=== PATIENT | female | born 1950 | race African-American/Black ===

== ENCOUNTER 2018-01-25 01:49 | Emergency (ER) | payer OTHER, MEDICARE ==
[2018-01-25] MEDS ORDERED: ASPIRIN 81 MG TABLET, CHEWABLE PO ONE (02:08)
[2018-01-25 02:45] LABS: ABSOLUTE EOSINOPHILS # (AUTO) 0.1 10^3/uL (0.0-0.6); ABSOLUTE LYMPHOCYTES (AUTO) 1.4 10^3/uL (0.5-4.7); ABSOLUTE MONOCYTES (AUTO) 0.5 10^3/uL (0.1-1.4); ABSOLUTE NEUT (AUTO) 2.6 10^3/uL (1.7-8.2); BASOPHILS % (AUTO) 0.9 % (0-2); EOSINOPHILS % (AUTO) 2.8 % (0-6); HEMATOCRIT 37.2 % (36.0-47.0); HEMOGLOBIN 12.3 g/dL (12.0-15.5); LYMPHOCYTES % (AUTO) 29.6 % (13-45); MEAN CORPUSCULAR HEMOGLOBIN 30.9 pg (27.0-33.4); MEAN CORPUSCULAR HGB CONC 33.2 g/dL (32.0-36.0); MEAN CORPUSCULAR VOLUME 93 fl (80-97); MONOCYTES % (AUTO) 9.9 % (3-13); PLATELET COUNT 177 10^3/uL (150-450); RED BLOOD COUNT 3.99 10^6/uL (3.72-5.28); RED CELL DISTRIBUTION WIDTH 12.9 % (11.5-14.0); SEGMENTED NEUTROPHILS % (AUTO) 56.8 % (42-78); TOTAL CELLS COUNTED % (AUTO) 100 %; WHITE BLOOD COUNT 4.7 10^3/uL (4.0-10.5)
[2018-01-25 03:01] LABS: ALANINE AMINOTRANSFERASE 31 U/L (9-52); ALBUMIN 3.8 g/dL (3.5-5.0); ALKALINE PHOSPHATASE 69 U/L (38-126); ANION GAP 11 (5-19); ASPARTATE AMINO TRANSFERASE 27 U/L (14-36); BILIRUBIN,DIRECT 0.3 mg/dL (0.0-0.4); BILIRUBIN,TOTAL 0.3 mg/dL (0.2-1.3); BLOOD UREA NITROGEN 26 mg/dL (7-20); CALCIUM 9.4 mg/dL (8.4-10.2); CARBON DIOXIDE 25 mmol/L (22-30); CHLORIDE 109 mmol/L (98-107); CREATINE KINASE 153 U/L (30-135); GLUCOSE 99 mg/dL (75-110); POTASSIUM 3.7 mmol/L (3.6-5.0); SODIUM 145.2 mmol/L (137-145); TOTAL PROTEIN 6.7 g/dL (6.3-8.2)
[2018-01-25 03:14] LABS: TROPONIN I < 0.012 ng/mL
--- NOTE | 2018-01-25 03:35 | RADIOLOGY REPORT (SQ) ---
Clinical History : cp , Complete Date/Time^01/25/2018 02:08 SITE_PROCEDURE_DESCRIPTION Exam : Portable AP view of the chest 01/25/2018 2:08 AM CDT Comparisons : none Findings : The lungs are clear without focal consolidation or pleural effusion. The heart is normal in size. The mediastinal contours are normal in appearance. The thoracic spine is age appropriate. The shoulders are unremarkable. Limited evaluation of the upper abdomen demonstrates no gross abnormalities. Impression: No acute cardiopulmonary disease
--- NOTE | 2018-01-25 06:14 | ER Document Report ---
ED Cardiac - General Chief Complaint: Chest Pain Stated Complaint: CHEST PAIN Time Seen by Provider: 01/25/18 03:32 Mode of Arrival: Ambulatory Information source: Patient Notes: Pt is a 67 year old female with a history of HTN who presents to the ER today for one single twinge of pain to the right chest 3 hours ago. She states it did not radiate anywhere, denies sob, nausea or numbness/tingling anywhere. She states she just got over sinusitis/bronchitis that her pcp put her on azithromycin for and has been having some right rib pain intermittently as well that seems to be getting better. She states sinus symptoms/cough symptoms are better. She denies history of heart attack or stroke, denies recent stress test. states she hasn't had any more pain since 3 hours ago. TRAVEL OUTSIDE OF THE [place] IN LAST 30 DAYS: No - Related Data Allergies/Adverse Reactions: codeine Adverse Reaction (Verified 01/25/18 02:27) Past Medical History - General Information source: Patient - Social History Smoking Status: Never Smoker Chew tobacco use (# tins/day): No Frequency of alcohol use: None Drug Abuse: None Family History: Reviewed & Not Pertinent Patient has suicidal ideation: No Patient has homicidal ideation: No - Past Medical History Cardiac Medical History: Reports: Hx Hypertension Renal/ Medical History: Denies: Hx Peritoneal Dialysis Past Surgical History: Reports: Hx Hysterectomy Review of Systems - Review of Systems Constitutional: No symptoms reported EENT: No symptoms reported Cardiovascular: See HPI Respiratory: No symptoms reported Gastrointestinal: No symptoms reported Genitourinary: No symptoms reported Female Genitourinary: No symptoms reported Musculoskeletal: No symptoms reported Skin: No symptoms reported Hematologic/Lymphatic: No symptoms reported Neurological/Psychological: No symptoms reported Physical Exam - Vital signs Vitals: Pulse Ox 99 01/25/18 02:08 - Notes Notes: PHYSICAL EXAMINATION: GENERAL: smiling and in no acute distress. HEAD: Atraumatic, normocephalic. EYES: Pupils equal round and reactive to light, extraocular movements intact, sclera anicteric, conjunctiva are normal. ENT: ear canals without erythema or foreign body, TMs pearly jenkins with good bony landmarks, nares patent, oropharynx clear without exudates. Moist mucous membranes. Airway patent NECK: Normal range of motion, supple without lymphadenopathy LUNGS: CTAB and equal. No wheezes rales or rhonchi. HEART: chest nontender to palpation, Regular rate and rhythm without murmurs ABDOMEN: Soft, no tenderness. No guarding, no rebound BACK: no vertebral tenderness, normal ROM GI/: no CVA tenderness EXTREMITIES: Normal range of motion, no pitting edema. No cyanosis. NEUROLOGICAL: Cranial nerves grossly intact. Normal sensory/motor exams. SKIN: Warm, Dry, normal turgor,no rash Course - Re-evaluation Re-evalutation: 01/25/18 22:52 labwork unremarkable today including two sets of normal troponins. EKG reveals a normal sinus rhythm without evidence of ischemia or abnormality. Pt has had no pain here. I advise that pt follow up with pcp for stress test. - Vital Signs Vital signs: Temp Pulse Resp BP Pulse Ox 98.5 F 20 155/77 H 100 01/25/18 06:15 01/25/18 06:17 01/25/18 06:17 01/25/18 06:17 - Laboratory Result Diagrams: 01/25/18 02:25 01/25/18 02:25 Laboratory results interpreted by me: 01/25/18 02:25 Sodium 145.2 H Chloride 109 H BUN 26 H Creatinine 1.38 H Est GFR ( Amer) 46 L Est GFR (Non-Af Amer) 38 L Creatine Kinase 153 H Discharge - Discharge Clinical Impression: Chest pain Qualifiers: Chest pain type: unspecified Qualified Code(s): R07.9 - Chest pain, unspecified Condition: Stable Disposition: HOME, SELF-CARE Additional Instructions: Return immediately for any new or worsening symptoms. Follow up with primary care provider, call tomorrow to make followup appointment. Prescriptions: Ibuprofen [Motrin 800 mg Tablet] 800 mg PO Q8H PRN #30 tab PRN Reason: Referrals: JAIME HURST MD [Primary Care Provider] - Follow up as needed
[2018-01-25 06:57] VITALS: BP 155/77
--- NOTE | 2018-01-25 10:15 | EKG REPORT ---
SEVERITY:- ABNORMAL ECG - SINUS RHYTHM LAD, CONSIDER LEFT ANTERIOR FASCICULAR BLOCK : Confirmed by: Mary Lord 25-Jan-2018 10:14:55
== END 2018-01-25 06:30 | disposition home or self-care (01) ==
LOC: ER 01:49
DX: R07.9 Chest pain, unspecified (principal); I10 Essential (primary) hypertension; Z88.6 Allergy status to analgesic agent; Z90.710 Acquired absence of both cervix and uterus
CPT/HCPCS: 36415; 71045; 80053; 82550; 82553; 84484; 85025; 93005; 93010; 99285

== ENCOUNTER → 2018-11-14 | Outpatient (CLI) | payer OTHER, MEDICARE ==
--- NOTE | 2018-11-14 12:08 | RADIOLOGY REPORT (SQ) ---
EXAM DESCRIPTION: SACROILIAC JOINTS COMPLETED DATE/TIME: 11/14/2018 11:58 am REASON FOR STUDY: LOW BACK PAIN M54.5 LOW BACK PAIN COMPARISON: None. NUMBER OF VIEWS: Three views. TECHNIQUE: AP and oblique views of the sacroiliac joints. LIMITATIONS: None. FINDINGS: MINERALIZATION: Decreased. BONES: No acute fracture or dislocation. No worrisome bone lesions. Minimal osteophytosis inferiorly. JOINTS: The sacroiliac joints are patent. No unusual widening, sclerosis, or fusion. SOFT TISSUES: No soft tissue swelling. No radio-opaque foreign body. OTHER: No other significant finding. IMPRESSION: Minimal osteophyte formation inferiorly. Otherwise, unremarkable SI joint radiographs. TECHNICAL DOCUMENTATION: JOB ID: [id number] [employer]- All Rights Reserved Reading location - IP/workstation name: [email or web address]
--- NOTE | 2018-11-14 12:08 | RADIOLOGY REPORT (SQ) ---
EXAM DESCRIPTION: LUMBAR SPINE 2 VIEWS COMPLETED DATE/TIME: 11/14/2018 11:58 am REASON FOR STUDY: LOW BACK PAIN M54.5 LOW BACK PAIN COMPARISON: None. NUMBER OF VIEWS: Two views. TECHNIQUE: AP and lateral radiographic images acquired of the lumbar spine. LIMITATIONS: None. FINDINGS: MINERALIZATION: Decreased. SEGMENTATION: 5 [id number] lumbar vertebral bodies. No significant transitional anatomy. ALIGNMENT: Grade 1 anterolisthesis of L4 on L5. VERTEBRAE: Maintained height. No fracture or worrisome bone lesion. DISCS: Degenerative disc disease with disc height loss at L3-4, L4-5 and L5-S1. There is associated mild anterior osteophytosis. POSTERIOR ELEMENTS: Facet arthropathy from L3-S1, right greater than left. HARDWARE: None in the spine. PARASPINAL SOFT TISSUES: Normal. PELVIS: Intact as visualized. No fractures or worrisome bone lesions. SI joints demonstrate minimal osteophytosis inferiorly. OTHER: No other significant finding. IMPRESSION: No acute bony abnormality. Lower lumbar degenerative disc disease greatest at L3 through S1. Grade 1 anterolisthesis of L4 on L 5. Lower lumbar facet arthropathy, right greater than left. TECHNICAL DOCUMENTATION: JOB ID: [id number] [employer]- All Rights Reserved Reading location - IP/workstation name: [email or web address]
--- NOTE | 2018-11-14 12:09 | RADIOLOGY REPORT (SQ) ---
EXAM DESCRIPTION: SACRUM AND COCCYX COMPLETED DATE/TIME: 11/14/2018 11:58 am REASON FOR STUDY: LOW BACK PAIN M54.5 LOW BACK PAIN COMPARISON: None. NUMBER OF VIEWS: Three views. TECHNIQUE: AP, lateral, and tilt views of the sacrum and coccyx. LIMITATIONS: None. FINDINGS: MINERALIZATION: Decreased. BONES: No acute fracture or dislocation. No worrisome bone lesions. SOFT TISSUES: No soft tissue swelling. No foreign body. OTHER: No other significant finding. IMPRESSION: No evidence of acute bony abnormality. TECHNICAL DOCUMENTATION: JOB ID: [id number] [employer]- All Rights Reserved Reading location - IP/workstation name: [email or web address]
== END ==
LOC: OD 11:32
PROVIDERS: ATTEND Internal Medicine
DX: M54.5 Low back pain (principal)
CPT/HCPCS: 72100; 72200; 72220

== ENCOUNTER 2019-03-15 14:28 | Inpatient (IN) | payer MEDICARE, OTHER ==
--- NOTE | 2019-03-15 15:41 | ER Document Report ---
ED Medical Screen (RME) - General Chief Complaint: Chest Pain > 30 Stated Complaint: CHEST UNCOMFORTABLE Time Seen by Provider: 03/15/19 15:35 Primary Care Provider: JAIME HURST MD [Primary Care Provider] - Follow up as needed TRAVEL OUTSIDE OF THE [place] IN LAST 30 DAYS: No - HPI Notes: 03/15/19 15:40 Patient is a 68-year-old female with a history of hypertension and GERD who presents complaining of chest heaviness over the past 2 days with episodes of shortness of breath and dyspnea on exertion. Patient states that on occasion she will feel an aching to her left arm. Symptoms have been pretty constant for the past 2 days. She is able to eat and drink without difficulty. She is urinating normally. No other concerns or complaints. Denies PURCELL, fever, neck pain, URI, Abd pain, dysuria, back pain, or rash. I have treated and performed a rapid initial assessment of this patient. A comprehensive ED assessment and evaluation of the patient, analysis of test results and completion of medical decision making process will be conducted by additional ED providers. PHYSICAL EXAMINATION: GENERAL: Well-appearing, well-nourished and in no acute distress. A&Ox4. Answers questions appropriately. LUNGS: Breath sounds clear to auscultation bilaterally and equal. No wheezes rales or rhonchi. HEART: Regular rate and rhythm without murmurs, rubs, gallops. Extremities: No cyanosis, clubbing, or edema b/l. Chirag negative bilaterally. No lower extremity asymmetry. NEUROLOGICAL: Normal speech, normal gait. PSYCH: Normal mood, normal affect. - Related Data Allergies/Adverse Reactions: codeine Adverse Reaction (Verified 03/15/19 14:40) Past Medical History - Social History Frequency of alcohol use: None Drug Abuse: None - Past Medical History Cardiac Medical History: Reports: Hx Hypertension Renal/ Medical History: Denies: Hx Peritoneal Dialysis GI Medical History: Reports: Hx Gastroesophageal Reflux Disease Past Surgical History: Reports: Hx Hysterectomy, Hx Tonsillectomy Physical Exam - Vital signs Vitals: Temp Pulse Resp BP Pulse Ox 98.4 F 58 L 20 125/62 97 03/15/19 14:44 03/15/19 14:44 03/15/19 14:44 03/15/19 14:44 03/15/19 14:44 Course - Vital Signs Vital signs: Temp Pulse Resp BP Pulse Ox 98.4 F 58 L 20 125/62 97 03/15/19 14:44 03/15/19 14:44 03/15/19 14:44 03/15/19 14:44 03/15/19 14:44 Doctor's Discharge - Discharge Referrals: JAIME HURST MD [Primary Care Provider] - Follow up as needed
[2019-03-15 16:10] LABS: ABSOLUTE EOSINOPHILS # (AUTO) 0.1 10^3/uL (0.0-0.6); ABSOLUTE LYMPHOCYTES (AUTO) 1.5 10^3/uL (0.5-4.7); ABSOLUTE MONOCYTES (AUTO) 0.6 10^3/uL (0.1-1.4); ABSOLUTE NEUT (AUTO) 1.9 10^3/uL (1.7-8.2); BASOPHILS % (AUTO) 0.9 % (0-2); EOSINOPHILS % (AUTO) 2.8 % (0-6); HEMATOCRIT 38.7 % (36.0-47.0); HEMOGLOBIN 12.9 g/dL (12.0-15.5); LYMPHOCYTES % (AUTO) 36.8 % (13-45); MEAN CORPUSCULAR HEMOGLOBIN 31.1 pg (27.0-33.4); MEAN CORPUSCULAR HGB CONC 33.2 g/dL (32.0-36.0); MEAN CORPUSCULAR VOLUME 94 fl (80-97); MONOCYTES % (AUTO) 14.4 % (3-13); PLATELET COUNT 209 10^3/uL (150-450); RED BLOOD COUNT 4.13 10^6/uL (3.72-5.28); RED CELL DISTRIBUTION WIDTH 13.3 % (11.5-14.0); SEGMENTED NEUTROPHILS % (AUTO) 45.1 % (42-78); TOTAL CELLS COUNTED % (AUTO) 100 %; WHITE BLOOD COUNT 4.2 10^3/uL (4.0-10.5)
--- NOTE | 2019-03-15 16:18 | EKG REPORT ---
SEVERITY:- ABNORMAL ECG - SINUS RHYTHM LEFT AXIS DEVIATION LEFT VENTRICULAR HYPERTROPHY EARLY PRECORDIAL TRANSITION, CONSIDE OLD TRUE ME. : Confirmed by: Gordo Zayas MD 15-Mar-2019 16:17:59
[2019-03-15 16:24] LABS: APPEARANCE,URINE CLEAR; BILIRUBIN,URINE NEGATIVE (NEGATIVE); COLOR,URINE YELLOW; GLUCOSE, URINE NEGATIVE (NEGATIVE); KETONES,URINE NEGATIVE (NEGATIVE); LEUKOCYTE ESTERASE,URINE NEGATIVE (NEGATIVE); NITRITE,URINE NEGATIVE (NEGATIVE); PROTEIN,URINE NEGATIVE (NEGATIVE); UROBILINOGEN,URINE NEGATIVE mg/dL (<2.0)
[2019-03-15 16:30] LABS: ALANINE AMINOTRANSFERASE 23 U/L (9-52); ALBUMIN 4.6 g/dL (3.5-5.0); ALKALINE PHOSPHATASE 67 U/L (38-126); ANION GAP 8 (5-19); ASPARTATE AMINO TRANSFERASE 42 U/L (14-36); BILIRUBIN,DIRECT 0.3 mg/dL (0.0-0.4); BILIRUBIN,TOTAL 0.5 mg/dL (0.2-1.3); BLOOD UREA NITROGEN 33 mg/dL (7-20); CALCIUM 9.5 mg/dL (8.4-10.2); CARBON DIOXIDE 30 mmol/L (22-30); CHLORIDE 103 mmol/L (98-107); GLUCOSE 102 mg/dL (75-110); POTASSIUM 3.8 mmol/L (3.6-5.0); TOTAL PROTEIN 8.3 g/dL (6.3-8.2)
--- NOTE | 2019-03-15 16:35 | RADIOLOGY REPORT (SQ) ---
EXAM DESCRIPTION: CHEST 2 VIEWS COMPLETED DATE/TIME: 03/15/2019 4:18 pm REASON FOR STUDY: CP COMPARISON: None. EXAM PARAMETERS: NUMBER OF VIEWS: two views TECHNIQUE: Digital Frontal and Lateral radiographic views of the chest acquired. RADIATION DOSE: NA LIMITATIONS: none FINDINGS: LUNGS AND PLEURA: No opacities, masses or pneumothorax. No pleural effusion. MEDIASTINUM AND HILAR STRUCTURES: No masses or contour abnormalities. HEART AND VASCULAR STRUCTURES: Heart normal size. No evidence for failure. BONES: No acute findings. HARDWARE: None in the chest. OTHER: No other significant finding. IMPRESSION: NO ACUTE RADIOGRAPHIC FINDING IN THE CHEST. TECHNICAL DOCUMENTATION: JOB ID: [id number] [email or web address]- All Rights Reserved Reading location - IP/workstation name: [email or web address]
[2019-03-15 16:42] LABS: NT PRO BNP 82 pg/mL (5-900); TROPONIN I < 0.012 ng/mL
--- NOTE | 2019-03-15 22:56 | ER Document Report ---
ED General - General Chief Complaint: Chest Pain > 30 Stated Complaint: CHEST UNCOMFORTABLE Time Seen by Provider: 03/15/19 15:35 Primary Care Provider: JAIME HURST MD [Primary Care Provider] - Follow up as needed TRAVEL OUTSIDE OF THE [place] IN LAST 30 DAYS: No - HPI Patient complains to provider of: Chest pain Notes: 68-year-old female presents with 2-day history of chest pressure and tightness. Today the pain radiates to her left arm. This pain is been associate with decreased exercise tolerance and dyspnea. She is describing the pain as a 6/10 heaviness without radiation outside of the one episode of arm pain. Nothing makes the pain better or worse. Reproducible. Patient has no history of cardiac disease but has never had a cardiac evaluation - Related Data Allergies/Adverse Reactions: codeine Adverse Reaction (Verified 03/15/19 14:40) Past Medical History - Social History Smoking Status: Never Smoker Frequency of alcohol use: None Drug Abuse: None Family History: Reviewed & Not Pertinent Patient has suicidal ideation: No Patient has homicidal ideation: No - Past Medical History Cardiac Medical History: Reports: Hx Hypertension Renal/ Medical History: Denies: Hx Peritoneal Dialysis GI Medical History: Reports: Hx Gastroesophageal Reflux Disease Past Surgical History: Reports: Hx Hysterectomy, Hx Tonsillectomy Review of Systems - Review of Systems Notes: REVIEW OF SYSTEMS: CONSTITUTIONAL: -fevers, -chills EENT: -eye pain, -difficulty swallowing, -nasal congestion CARDIOVASCULAR: positive chest pain, -syncope. RESPIRATORY: -cough, -SOB GASTROINTESTINAL: -abdominal pain, -nausea, -vomiting, -diarrhea GENITOURINARY: -dysuria, -hematuria MUSCULOSKELETAL: -back pain, -neck pain SKIN: -rash or skin lesions. HEMATOLOGIC: -easy bruising or bleeding. LYMPHATIC: -swollen, enlarged glands. NEUROLOGICAL: -altered mental status or loss of consciousness, -headache, - neurologic symptoms PSYCHIATRIC: -anxiety, -depression. ALL OTHER SYSTEMS REVIEWED AND NEGATIVE. Physical Exam - Vital signs Vitals: Temp Pulse Resp BP Pulse Ox 98.4 F 58 L 20 125/62 97 03/15/19 14:44 03/15/19 14:44 03/15/19 14:44 03/15/19 14:44 03/15/19 14:44 - Notes Notes: PHYSICAL EXAMINATION: GENERAL: Well-appearing, well-nourished and in no acute distress. HEAD: Atraumatic, normocephalic. EYES: Pupils equal round and reactive to light, extraocular movements intact, sclera anicteric, conjunctiva are normal. ENT: nares patent, oropharynx clear without exudates. Moist mucous membranes. NECK: Normal range of motion, supple without lymphadenopathy LUNGS: Breath sounds clear to auscultation bilaterally and equal. No wheezes rales or rhonchi. HEART: Regular rate and rhythm without murmurs ABDOMEN: Soft, nontender, normoactive bowel sounds. No guarding, no rebound. No masses appreciated. EXTREMITIES: Normal range of motion, no pitting or edema. No cyanosis. NEUROLOGICAL: Cranial nerves grossly intact. Normal speech, normal gait. Normal sensory and motor exams. PSYCH: Normal mood, normal affect. SKIN: Warm, Dry, normal turgor, no rashes or lesions noted. Course - Re-evaluation Re-evalutation: 03/15/19 23:08 68-year-old female presents with chest pain with radiation to her left arm. Initial lab work-up unremarkable at this time with a negative troponin. Patient's EKG does have some flattened T waves that are new from and compared to an EKG in December 2017. At that time she had normal T waves. She will be admitted to the hospital for further evaluation of possible cardiac chest pain, including stress test in the morning. Discussed case with her admitting physician - Vital Signs Vital signs: Temp Pulse Resp BP Pulse Ox 98.4 F 58 L 20 125/62 97 03/15/19 14:44 03/15/19 14:44 03/15/19 14:44 03/15/19 14:44 03/15/19 14:44 - Laboratory Result Diagrams: 03/15/19 15:45 03/15/19 15:45 Laboratory results interpreted by me: 03/15/19 03/15/19 15:45 15:45 Monocytes % 14.4 H BUN 33 H Creatinine 1.60 H Est GFR ( Amer) 39 L Est GFR (Non-Af Amer) 32 L AST 42 H Total Protein 8.3 H - EKG Interpretation by Me Additional EKG results interpreted by me: 03/15/19 23:09 Normal sinus rhythm, no ST elevations or depressions. Patient does have flattened T waves in lateral leads, this is profoundly different from EKG from December 2017 Discharge - Discharge Clinical Impression: Chest pain Qualifiers: Chest pain type: unspecified Qualified Code(s): R07.9 - Chest pain, unspecified Condition: Stable Disposition: ADMITTED INPATIENT Admitting Provider: [facility] Admitted: Telemetry Referrals: JAIME HURST MD [Primary Care Provider] - Follow up as needed
[2019-03-16] MEDS ORDERED: HEPARIN SOD (PORCINE) 5,000 UNIT/ML 1 ML VIAL SUBCUT ONE (00:30)
[2019-03-16 00:58] LABS: PHOSPHORUS 2.9 mg/dL (2.5-4.5)
[2019-03-16 01:11] LABS: CREATINE KINASE MB 0.79 ng/mL (<4.55)
[2019-03-16 01:12] LABS: TROPONIN I < 0.012 ng/mL
[2019-03-16 01:15] LABS: FREE T4 (FREE THYROXINE) 1.07 ng/dL (0.78-2.19)
--- NOTE | 2019-03-16 01:23 | RADIOLOGY REPORT (SQ) ---
US RETROPERITONEUM LIMITED EXAM DATE: 03/15/2019 12:00 AM CDT HISTORY: Kidney failure. COMPARISON: 04/10/2015 TECHNIQUE: Grayscale and color Doppler ultrasound images of the kidneys were obtained. FINDINGS: The right kidney measures 9.1 cm and the left kidney measures 9.3 cm in length. Both kidneys have increased echogenicity throughout the cortex, which is thinned. There is a 3.3 cm cyst in the right kidney. No hydronephrosis, shadowing stone, or mass is identified. The urinary bladder is unremarkable. IMPRESSION: 1. Atrophic kidneys with thin cortices and increased echogenicity, consistent with medical renal disease. 2. No hydronephrosis.
[2019-03-16 01:29] LABS: THYROID STIMULATING HORMONE 1.77 uIU/mL (0.47-4.68)
[2019-03-16 07:31] LABS: ALANINE AMINOTRANSFERASE 27 U/L (9-52); ALBUMIN 4.2 g/dL (3.5-5.0); ALKALINE PHOSPHATASE 72 U/L (38-126); ANION GAP 9 (5-19); ASPARTATE AMINO TRANSFERASE 25 U/L (14-36); BILIRUBIN,DIRECT 0.2 mg/dL (0.0-0.4); BILIRUBIN,TOTAL 0.6 mg/dL (0.2-1.3); BLOOD UREA NITROGEN 29 mg/dL (7-20); CALCIUM 9.7 mg/dL (8.4-10.2); CARBON DIOXIDE 27 mmol/L (22-30); CHLORIDE 105 mmol/L (98-107); GLUCOSE 91 mg/dL (75-110); TOTAL PROTEIN 7.1 g/dL (6.3-8.2)
[2019-03-16 07:43] LABS: CREATINE KINASE MB 0.74 ng/mL (<4.55)
[2019-03-16 07:46] LABS: TROPONIN I < 0.012 ng/mL
[2019-03-16] MEDS: HEPARIN SOD (PORCINE) 5,000 UNIT/ML 1 ML VIAL SUBCUT SCH ×3 (07:46→21:45)
[2019-03-16 08:52] LABS: IRON(TIBC) 108.8 ug/dL (37-170); PHOSPHORUS 3.6 mg/dL (2.5-4.5)
[2019-03-16 08:58] LABS: ABSOLUTE RETICS # 0.037 10^6/uL (0.028-0.122); RETICULOCYTE COUNT (AUTO) 0.91 % (0.66-2.85)
[2019-03-16 11:29] LABS: CREATINE KINASE MB 0.75 ng/mL (<4.55)
[2019-03-16 11:32] LABS: TROPONIN I < 0.012 ng/mL
--- NOTE | 2019-03-16 20:27 | PDOC H&P ---
History of Present Illness Admission Date/PCP: 03/15/19 23:31 JAIME HURST MD History of Present Illness: MAZIN BARKER is a 68 year old female,She came to the emergency room for e valuation of chest pressure she stated that the pain radiated to her left upper arm. She was evaluated in the emergency room a 12-lead EKG was done, it showed nonspecific flattened T waves in lateral leads. She had 3 sets of cardiac enzymes that was negative for acute IL.She has risk factors for ischemic heart disease, hypertension, chronic kidney disease stage III the kidney ultrasound that was done for the evaluation of azotemia demonstrated small kidneys with thinning of the cortex of the kidney consistent with medical renal disease Past Medical History Cardiac Medical History: Reports: Hypertension GI Medical History: Reports: Gastroesophageal Reflux Disease Past Surgical History Past Surgical History: Reports: Hysterectomy, Tonsillectomy Social History Smoking Status: Never Smoker Frequency of Alcohol Use: None Hx Recreational Drug Use: No Family History Family History: Reviewed & Not Pertinent Parental Family History Reviewed: Yes Children Family History Reviewed: Yes Sibling(s) Family History Reviewed.: Yes Medication/Allergy Home Medications: Aspirin [Ecotrin 81 mg EC Tablet] 81 mg PO DAILY 03/16/19 Losartan/Hydrochlorothiazide [Losartan-Hctz 100-25 mg Tab] 1 each PO DAILY 03/16/19 Omeprazole 40 mg PO BIDACBS 03/16/19 Verapamil HCl [Verapamil ER] 240 mg PO DAILY 03/16/19 Allergies/Adverse Reactions: codeine Adverse Reaction (Verified 03/15/19 14:40) Review of Systems Constitutional: ABSENT: chills, fever(s), headache(s), weight gain, weight loss Eyes: ABSENT: visual disturbances Ears: ABSENT: hearing changes Cardiovascular: PRESENT: chest pain. ABSENT: dyspnea on exertion, edema, orthropnea, palpitations Respiratory: ABSENT: cough, hemoptysis Gastrointestinal: ABSENT: abdominal pain, constipation, diarrhea, hematemesis, hematochezia, nausea, vomiting Genitourinary: ABSENT: dysuria, hematuria Musculoskeletal: ABSENT: joint swelling Integumentary: ABSENT: rash, wounds Neurological: ABSENT: abnormal gait, abnormal speech, confusion, dizziness, focal weakness, syncope Psychiatric: ABSENT: anxiety, depression, homidical ideation, suicidal ideation Endocrine: ABSENT: cold intolerance, heat intolerance, menstrual abnormalities, polydipsia, polyuria Hematologic/Lymphatic: ABSENT: easy bleeding, easy bruising, lymphadenopathy Physical Exam Vital Signs: Temp Pulse Resp BP Pulse Ox 98.2 F 50 L 16 111/46 L 97 03/16/19 16:49 03/16/19 19:00 03/16/19 16:49 03/16/19 16:49 03/16/19 16:49 Intake & Output 03/15/19 03/16/19 03/17/19 06:59 06:59 06:59 Intake Total 340 Balance 340 Weight 62.2 kg 59.9 kg General appearance: PRESENT: no acute distress, well-developed, well-nourished Head exam: PRESENT: atraumatic, normocephalic Eye exam: PRESENT: conjunctiva pink, EOMI, PERRLA Ear exam: PRESENT: normal external ear exam Mouth exam: PRESENT: moist, tongue midline Neck exam: PRESENT: full ROM Respiratory exam: PRESENT: clear to auscultation criss Cardiovascular exam: PRESENT: RRR. ABSENT: diastolic murmur, rubs, systolic murmur Pulses: PRESENT: normal dorsalis pedis pul, +2 pedal pulses bilateral Vascular exam: PRESENT: normal capillary refill GI/Abdominal exam: PRESENT: normal bowel sounds, soft Rectal exam: PRESENT: deferred Neurological exam: PRESENT: alert, awake, oriented to person, oriented to place, oriented to time, oriented to situation, CN II-XII grossly intact Psychiatric exam: PRESENT: appropriate affect, normal mood Skin exam: PRESENT: dry, intact, warm Results Laboratory Results: 03/15/19 15:45 03/16/19 07:02 03/16/19 03/16/19 03/16/19 00:31 00:31 07:02 Retic Count (auto) Absolute Retic Sodium 140.6 Potassium 4.0 Chloride 105 Carbon Dioxide 27 Anion Gap 9 BUN 29 H Creatinine 1.48 H Est GFR ( Amer) 42 L Est GFR (Non-Af Amer) 35 L Glucose 91 Calcium 9.7 Phosphorus 2.9 Magnesium 2.4 H Iron TIBC % Saturation Ferritin Total Bilirubin 0.6 AST 25 ALT 27 Alkaline Phosphatase 72 Total Protein 7.1 Albumin 4.2 Vitamin B12 Folate TSH 1.77 Free T4 1.07 PTH Intact 03/16/19 03/16/19 03/16/19 07:02 07:02 09:40 Retic Count (auto) 0.91 Absolute Retic 0.037 Sodium Potassium Chloride Carbon Dioxide Anion Gap BUN Creatinine Est GFR ( Amer) Est GFR (Non-Af Amer) Glucose Calcium Phosphorus 3.6 Magnesium Iron 108.8 TIBC 335 % Saturation 32 Ferritin 143.00 Total Bilirubin AST ALT Alkaline Phosphatase Total Protein Albumin Vitamin B12 391.0 Folate 19.70 TSH Free T4 PTH Intact 54.4 03/15/19 03/16/19 03/16/19 15:45 00:31 07:02 CK-MB (CK-2) 0.79 0.74 Troponin I < 0.012 < 0.012 < 0.012 NT-Pro-B Natriuret Pep 82 03/16/19 09:40 CK-MB (CK-2) 0.75 Troponin I < 0.012 NT-Pro-B Natriuret Pep Impressions: Renal Ultrasound 03/15/19 00:00 IMPRESSION: 1. Atrophic kidneys with thin cortices and increased echogenicity, consistent with medical renal disease. 2. No hydronephrosis. Chest X-Ray 03/15/19 15:39 IMPRESSION: NO ACUTE RADIOGRAPHIC FINDING IN THE CHEST. Assessment & Plan - Diagnosis (1) Chest pain Qualifiers: Chest pain type: unspecified Qualified Code(s): R07.9 - Chest pain, unspecified Is this a current diagnosis for this admission?: Yes Plan: Patient is admitted for evaluation and management of chest pain so far 3 sets of cardiac enzymes negative for acute IL she will need a nuclear stress test before discharge (2) CKD (chronic kidney disease), stage III Is this a current diagnosis for this admission?: Yes
[2019-03-17] MEDS: HEPARIN SOD (PORCINE) 5,000 UNIT/ML 1 ML VIAL SUBCUT SCH ×3 (05:38→21:36)
--- NOTE | 2019-03-17 10:25 | PDOC PROGRESS REPORT ---
Subjective Progress Note for:: 03/17/19 Subjective:: Patient was admitted for the chest pain Patient initial cardiac enzyme is negative Patient's is scheduled for the stress test on Tuesday Patient's heart rate is running 30-40 range Patient is taking the verapamil to 40 mg p.o. daily currently hold it According to the patient she denied any dizziness no other symptoms and her heart rate is always running low Reason For Visit: CHEST PAIN Physical Exam Vital Signs: Temp Pulse Resp BP Pulse Ox 98.4 F 53 L 16 133/75 H 100 03/17/19 08:16 03/17/19 08:16 03/17/19 08:16 03/17/19 08:16 03/17/19 08:16 Intake & Output 03/16/19 03/17/19 03/18/19 06:59 06:59 06:59 Intake Total 440 Balance 440 Weight 62.2 kg 59.9 kg General appearance: PRESENT: no acute distress, well-developed, well-nourished Head exam: PRESENT: atraumatic, normocephalic Eye exam: PRESENT: conjunctiva pink, EOMI, PERRLA. ABSENT: scleral icterus Ear exam: PRESENT: normal external ear exam Mouth exam: PRESENT: moist, tongue midline Neck exam: PRESENT: full ROM. ABSENT: carotid bruit, JVD, lymphadenopathy, thyromegaly Cardiovascular exam: PRESENT: bradycardia, RRR, +S1, +S2. ABSENT: diastolic murmur, rubs, systolic murmur Vascular exam: PRESENT: normal capillary refill GI/Abdominal exam: PRESENT: normal bowel sounds, soft. ABSENT: distended, guarding, mass, organolmegaly, rebound, tenderness Rectal exam: PRESENT: deferred Musculoskeletal exam: PRESENT: ambulatory Neurological exam: PRESENT: alert, awake, oriented to person, oriented to place, oriented to time, oriented to situation, CN II-XII grossly intact. ABSENT: motor sensory deficit Psychiatric exam: PRESENT: appropriate affect, normal mood. ABSENT: homicidal ideation, suicidal ideation Skin exam: PRESENT: dry, intact, warm. ABSENT: cyanosis, rash Results Laboratory Results: 03/15/19 15:45 03/16/19 07:02 03/16/19 09:40 PTH Intact 54.4 03/15/19 03/16/19 03/16/19 15:45 00:31 07:02 CK-MB (CK-2) 0.79 0.74 Troponin I < 0.012 < 0.012 < 0.012 NT-Pro-B Natriuret Pep 82 03/16/19 09:40 CK-MB (CK-2) 0.75 Troponin I < 0.012 NT-Pro-B Natriuret Pep Impressions: Renal Ultrasound 03/15/19 00:00 IMPRESSION: 1. Atrophic kidneys with thin cortices and increased echogenicity, consistent with medical renal disease. 2. No hydronephrosis. Chest X-Ray 03/15/19 15:39 IMPRESSION: NO ACUTE RADIOGRAPHIC FINDING IN THE CHEST. Assessment & Plan - Diagnosis (1) Chest pain Qualifiers: Chest pain type: unspecified Qualified Code(s): R07.9 - Chest pain, unspecified Is this a current diagnosis for this admission?: Yes Plan: Patient is scheduled for the stress test with the setting of the bradycardia we will consult the cardiology for further evaluation before the stress test (2) Bradycardia Is this a current diagnosis for this admission?: Yes Plan: Continues to hold the verapamil most likely a medications related we will check a TSH and free T4 (3) CKD (chronic kidney disease), stage III Is this a current diagnosis for this admission?: Yes Plan: Currently all stable - Time Time Spent with patient: 15-24 minutes Medications reviewed and adjusted accordingly: Yes Anticipated discharge: Other Within: Other - Plan Summary Plan Summary: With the patient and the nursing staff Continues to current medications
[2019-03-17] MEDS: ASPIRIN 81 MG TABLET, ENT COATED PO SCH (11:03)
[2019-03-17] MEDS: LOSARTAN POTASSIUM 50 MG TABLET PO SCH (11:03)
[2019-03-17] MEDS: HYDROCHLOROTHIAZIDE 25 MG TABLET PO SCH (11:04)
[2019-03-17] MEDS ORDERED: PANTOPRAZOLE SODIUM 40 MG TABLET.DR PO SCH (16:00)
[2019-03-17] MEDS: PANTOPRAZOLE SODIUM 40 MG TABLET.DR PO SCH (17:59)
[2019-03-17 21:17] LABS: APPEARANCE,URINE CLEAR; BILIRUBIN,URINE NEGATIVE (NEGATIVE); COLOR,URINE YELLOW; GLUCOSE, URINE NEGATIVE (NEGATIVE); KETONES,URINE NEGATIVE (NEGATIVE); LEUKOCYTE ESTERASE,URINE SMALL (NEGATIVE); NITRITE,URINE NEGATIVE (NEGATIVE); PROTEIN,URINE NEGATIVE (NEGATIVE); UROBILINOGEN,URINE NEGATIVE mg/dL (<2.0)
[2019-03-18] MEDS: HEPARIN SOD (PORCINE) 5,000 UNIT/ML 1 ML VIAL SUBCUT SCH ×3 (05:05→21:27)
[2019-03-18] MEDS: PANTOPRAZOLE SODIUM 40 MG TABLET.DR PO SCH ×2 (05:05→16:10)
[2019-03-18 05:34] LABS: ABSOLUTE EOSINOPHILS # (AUTO) 0.2 10^3/uL (0.0-0.6); ABSOLUTE LYMPHOCYTES (AUTO) 1.4 10^3/uL (0.5-4.7); ABSOLUTE MONOCYTES (AUTO) 0.5 10^3/uL (0.1-1.4); ABSOLUTE NEUT (AUTO) 1.3 10^3/uL (1.7-8.2); BASOPHILS % (AUTO) 0.7 % (0-2); EOSINOPHILS % (AUTO) 4.8 % (0-6); HEMATOCRIT 36.9 % (36.0-47.0); HEMOGLOBIN 12.4 g/dL (12.0-15.5); LYMPHOCYTES % (AUTO) 41.9 % (13-45); MEAN CORPUSCULAR HEMOGLOBIN 31.2 pg (27.0-33.4); MEAN CORPUSCULAR HGB CONC 33.5 g/dL (32.0-36.0); MEAN CORPUSCULAR VOLUME 93 fl (80-97); PLATELET COUNT 176 10^3/uL (150-450); RED BLOOD COUNT 3.96 10^6/uL (3.72-5.28); RED CELL DISTRIBUTION WIDTH 13.4 % (11.5-14.0); SEGMENTED NEUTROPHILS % (AUTO) 38.6 % (42-78); TOTAL CELLS COUNTED % (AUTO) 100 %; WHITE BLOOD COUNT 3.3 10^3/uL (4.0-10.5)
[2019-03-18 05:52] LABS: ANION GAP 7 (5-19); BLOOD UREA NITROGEN 32 mg/dL (7-20); CALCIUM 9.3 mg/dL (8.4-10.2); CARBON DIOXIDE 27 mmol/L (22-30); CHLORIDE 104 mmol/L (98-107); GLUCOSE 97 mg/dL (75-110); POTASSIUM 3.8 mmol/L (3.6-5.0)
[2019-03-18] MEDS: HYDROCHLOROTHIAZIDE 25 MG TABLET PO SCH (09:34)
[2019-03-18] MEDS: ASPIRIN 81 MG TABLET, ENT COATED PO SCH (09:34)
[2019-03-18] MEDS: LOSARTAN POTASSIUM 50 MG TABLET PO SCH (09:34)
--- NOTE | 2019-03-18 09:39 | PDOC PROGRESS REPORT ---
Subjective Progress Note for:: 03/18/19 Subjective:: Patient is currently doing fair No chest pain no short of breath Patient was seen by the cardiology yesterday for the bradycardia and the chest pain Patient is scheduled for a stress test with some confusion about cardiac cath not sure Patient also have a heartburn episode last night and resolved with the Protonix according to the patient she is taking the Zantac 150 milligrams top of the other medications seen by the GI in [place] in the past and suggest that Reason For Visit: CHEST PAIN Physical Exam Vital Signs: Temp Pulse Resp BP Pulse Ox 98.0 F 47 L 15 127/70 H 98 03/18/19 07:34 03/18/19 07:34 03/18/19 07:34 03/18/19 07:34 03/18/19 07:34 Intake & Output 03/17/19 03/18/19 03/19/19 06:59 06:59 06:59 Intake Total 440 600 Balance 440 600 Weight 59.9 kg 59.8 kg General appearance: PRESENT: no acute distress, well-developed, well-nourished Head exam: PRESENT: atraumatic, normocephalic Eye exam: PRESENT: conjunctiva pink, EOMI, PERRLA. ABSENT: scleral icterus Ear exam: PRESENT: normal external ear exam Mouth exam: PRESENT: moist, tongue midline Neck exam: PRESENT: full ROM. ABSENT: carotid bruit, JVD, lymphadenopathy, thyromegaly Respiratory exam: PRESENT: clear to auscultation criss Cardiovascular exam: PRESENT: bradycardia, RRR. ABSENT: diastolic murmur, rubs, systolic murmur Pulses: PRESENT: normal dorsalis pedis pul, +2 pedal pulses bilateral Vascular exam: PRESENT: normal capillary refill GI/Abdominal exam: PRESENT: normal bowel sounds, soft. ABSENT: distended, guarding, mass, organolmegaly, rebound, tenderness Rectal exam: PRESENT: deferred Musculoskeletal exam: PRESENT: ambulatory Neurological exam: PRESENT: alert, awake, oriented to person, oriented to place, oriented to time, oriented to situation, CN II-XII grossly intact. ABSENT: motor sensory deficit Psychiatric exam: PRESENT: appropriate affect, normal mood. ABSENT: homicidal ideation, suicidal ideation Skin exam: PRESENT: dry, intact, warm. ABSENT: cyanosis, rash Results Laboratory Results: 03/18/19 05:02 03/18/19 05:02 03/17/19 03/18/19 03/18/19 14:59 05:02 05:02 WBC 3.3 L RBC 3.96 Hgb 12.4 Hct 36.9 MCV 93 MCH 31.2 MCHC 33.5 RDW 13.4 Plt Count 176 Seg Neutrophils % 38.6 L Lymphocytes % 41.9 Monocytes % 14.0 H Eosinophils % 4.8 Basophils % 0.7 Absolute Neutrophils 1.3 L Absolute Lymphocytes 1.4 Absolute Monocytes 0.5 Absolute Eosinophils 0.2 Absolute Basophils 0.0 Sodium 138.0 Potassium 3.8 Chloride 104 Carbon Dioxide 27 Anion Gap 7 BUN 32 H Creatinine 1.42 H Est GFR ( Amer) 45 L Est GFR (Non-Af Amer) 37 L Glucose 97 Calcium 9.3 Urine Color YELLOW Urine Appearance CLEAR Urine pH 7.0 Ur Specific [place] 1.020 Urine Protein NEGATIVE Urine Glucose (UA) NEGATIVE Urine Ketones NEGATIVE Urine Blood NEGATIVE Urine Nitrite NEGATIVE Ur Leukocyte Esterase SMALL H Urine WBC (Auto) 2 Urine RBC (Auto) 1 03/15/19 03/16/19 03/16/19 15:45 00:31 07:02 CK-MB (CK-2) 0.79 0.74 Troponin I < 0.012 < 0.012 < 0.012 NT-Pro-B Natriuret Pep 82 03/16/19 09:40 CK-MB (CK-2) 0.75 Troponin I < 0.012 NT-Pro-B Natriuret Pep Impressions: Renal Ultrasound 03/15/19 00:00 IMPRESSION: 1. Atrophic kidneys with thin cortices and increased echogenicity, consistent with medical renal disease. 2. No hydronephrosis. Chest X-Ray 03/15/19 15:39 IMPRESSION: NO ACUTE RADIOGRAPHIC FINDING IN THE CHEST. Assessment & Plan - Diagnosis (1) Chest pain Qualifiers: Chest pain type: unspecified Qualified Code(s): R07.9 - Chest pain, unspecified Is this a current diagnosis for this admission?: Yes Plan: Follow with the cardiology scheduled for the stress test (2) Bradycardia Is this a current diagnosis for this admission?: Yes Plan: hold the verapamil asymptomatic (3) CKD (chronic kidney disease), stage III Is this a current diagnosis for this admission?: Yes Plan: Currently all stable (4) Gastroesophageal reflux Qualifiers: Esophagitis presence: without esophagitis Qualified Code(s): K21.9 - Gastro-esophageal reflux disease without esophagitis Is this a current diagnosis for this admission?: Yes Plan: The Zantac 150 milligrams p.o. daily - Time Time Spent with patient: 15-24 minutes Medications reviewed and adjusted accordingly: Yes Anticipated discharge: Other Within: Other - Plan Summary Plan Summary: Continues to current medication
[2019-03-18] MEDS ORDERED: (PENDING PHARMACY ID) (Losartan/Hydrochlorothiazide [Losartan-Hctz 100-25 Mg Tab] 1 EACH) PO SCH (10:00)
[2019-03-18] MEDS: FAMOTIDINE 20 MG TABLET PO SCH (13:56)
[2019-03-18] MEDS ORDERED: ACETAMINOPHEN 325 MG TABLET ONE (15:11)
[2019-03-18] MEDS: ACETAMINOPHEN 325 MG TABLET PO PRN (15:11)
[2019-03-19] MEDS: HEPARIN SOD (PORCINE) 5,000 UNIT/ML 1 ML VIAL SUBCUT SCH ×2 (05:17→13:51)
[2019-03-19] MEDS: PANTOPRAZOLE SODIUM 40 MG TABLET.DR PO SCH ×2 (05:17→16:26)
[2019-03-19 06:57] LABS: ANION GAP 7 (5-19); BLOOD UREA NITROGEN 27 mg/dL (7-20); CALCIUM 9.1 mg/dL (8.4-10.2); CARBON DIOXIDE 28 mmol/L (22-30); CHLORIDE 104 mmol/L (98-107); GLUCOSE 88 mg/dL (75-110); POTASSIUM 4.2 mmol/L (3.6-5.0)
[2019-03-19] MEDS: LOSARTAN POTASSIUM 50 MG TABLET PO SCH (11:59)
[2019-03-19] MEDS: ACETAMINOPHEN 325 MG TABLET PO PRN (11:59)
[2019-03-19] MEDS: HYDROCHLOROTHIAZIDE 25 MG TABLET PO SCH (12:00)
[2019-03-19] MEDS: FAMOTIDINE 20 MG TABLET PO SCH (12:00)
[2019-03-19] MEDS: ASPIRIN 81 MG TABLET, ENT COATED PO SCH (12:00)
[2019-03-19] MEDS ORDERED: REGADENOSON INJ 0.4 MG/5 ML DISP.SYRIN IV ONE (16:04)
[2019-03-19 18:53] VITALS: BP 148/65
--- NOTE | 2019-03-19 19:19 | PDOC DISCHARGE SUMMARY ---
General - Admit/Disc Date/PCP Admission Date/Primary Care Provider: 03/19/19 12:22 JAIME HURST MD Discharge Date: 03/19/19 - Discharge Diagnosis (1) Chest pain Is this a current diagnosis for this admission?: Yes (2) CKD (chronic kidney disease), stage III Is this a current diagnosis for this admission?: Yes - Additional Information Discharge Diet: As Tolerated Discharge Activity: Activity As Tolerated, Balance Activity w/Rest Home Medications: Aspirin [Ecotrin 81 mg EC Tablet] 81 mg PO DAILY 03/16/19 Losartan/Hydrochlorothiazide [Losartan-Hctz 100-25 mg Tab] 1 each PO DAILY 03/16/19 Omeprazole 40 mg PO BIDACBS 03/16/19 Verapamil HCl [Verapamil ER] 240 mg PO DAILY 03/16/19 Acetaminophen [Tylenol 325 mg Tablet] 650 mg PO Q4HP PRN tablet 03/19/19 History of Present Illness History of Present Illness: MAZIN BARKER is a 68 year old female,She came to the emergency room for evaluation of chest pressure she stated that the pain radiated to her left upper arm. She was evaluated in the emergency room a 12-lead EKG was done, it showed nonspecific flattened T waves in lateral leads. She had 3 sets of cardiac enzymes that was negative for acute CO.She has risk factors for ischemic heart disease, hypertension, chronic kidney disease stage III the kidney ultrasound that was done for the evaluation of azotemia demonstrated small kidneys with thinning of the cortex of the kidney consistent with medical renal disease Hospital Course Hospital Course: Patient was admitted for the management of chest pain, 3 sets of cardiac enzymes negative for acute CO, she underwent nuclear stress test today, there was no reversibility to suggest acute ischemia. She has CKD stage III ultrasound of the kidney was done, kidneys were small in size, there was no hydronephrosis, the serum phosphorus PTH ferritin, iron indices were normal Physical Exam Vital Signs: Temp Pulse Resp BP Pulse Ox 97.6 F 61 16 148/65 H 96 03/19/19 18:52 03/19/19 18:52 03/19/19 18:52 03/19/19 18:52 03/19/19 18:52 Intake & Output 03/18/19 03/19/19 03/20/19 06:59 06:59 06:59 Intake Total 600 600 720 Output Total 1 1 Balance 600 599 719 Weight 59.8 kg 59.6 kg Results Laboratory Results: 03/18/19 05:02 03/19/19 05:47 03/19/19 05:47 Sodium 138.7 Potassium 4.2 Chloride 104 Carbon Dioxide 28 Anion Gap 7 BUN 27 H Creatinine 1.53 H Est GFR ( Amer) 41 L Est GFR (Non-Af Amer) 34 L Glucose 88 Calcium 9.1 03/15/19 03/16/19 03/16/19 15:45 00:31 07:02 CK-MB (CK-2) 0.79 0.74 Troponin I < 0.012 < 0.012 < 0.012 NT-Pro-B Natriuret Pep 82 03/16/19 09:40 CK-MB (CK-2) 0.75 Troponin I < 0.012 NT-Pro-B Natriuret Pep Impressions: Renal Ultrasound 03/15/19 00:00 IMPRESSION: 1. Atrophic kidneys with thin cortices and increased echogenicity, consistent with medical renal disease. 2. No hydronephrosis. Chest X-Ray 03/15/19 15:39 IMPRESSION: NO ACUTE RADIOGRAPHIC FINDING IN THE CHEST. Qualifiers - * PATIENT BEING DISCHARGED WITH ANY OF THE FOLLOWING DIAGNOSIS: No VTE patient discharged on overlapping Therapy?: No Reason(s) for not prescribing Overlap Therapy:: Not indicated Stroke Pt being discharged on Anti-thrombolytic therapy?: No Reason(s) for not prescribing Anti-thrombolytic therapy:: Not indicated Stroke Pt being discharged on Anti-coagulation therapy?: No Reason(s) for not prescribing Anti-coagulation therapy:: Not indicated Stroke Pt being discharged on Statins?: No Reason(s) for not prescribing Statins therapy:: Not indicated CO Pt being discharged on Aspirin therapy?: No Reason(s) for not prescribing Aspirin therapy:: Not indicated CO Pt being discharged on Statins?: No Reason(s) for not prescribing Statin therapy:: Not indicated CO Pt discharged ACEI/ARBS?: No Reason(s) for not prescribing ACEI/ARBS:: Not indicated Acute Heart Failure - Is this a Heart Failure Patient?: No e) For LVEF <35%, discharged on Aldosterone antagonist?: N/A (LVEF > or = 35%)
--- NOTE | 2019-03-22 22:58 | DRAGON STRESS TEST REPORT ---
Intravenous Lexiscan Cardiolite stress test using single photon emmision computerized tomography. Date of procedure: 03/19/2019. Ordering Provider: Dr. Jeronimo. Patient's status: NCAT patient. Indication: Chest pain. Coronary risk factors: Age, and hypertension. Resting EKG: Sinus Rhythm. Within Normal Limits. Stress EKG: No changes of ischemia. The patient had no chest pain or discomfort, and there were no arrhythmias seen. Reason for termination: Protocol. Conclusions: Normal EKG and hemodynamic response to IV Lexiscan. Nuclear data: At rest the patient was given 10.49 millicuries of technetium 99m sestamibi injected intravenously. As per protocol rest non gated SPECT images were obtained. Subsequently the patient was given intravenous Lexiscan at a dose of 0.4 mg in 5 mL intravenously, followed by flush with normal saline. Subsequently the stress dose of 32.9 millicuries of technetium 99m sestamibi was injected intravenously. As per protocol stress gated images were obtained. Nuclear interpretation: Review of images showed that all segments of the myocardium had normal perfusion at rest, and normal perfusion post stress with IV Lexiscan. All segments of the myocardium had normal motion, contraction, and thickening by gated study. T. I D. ratio was normal at 0.97. There is no transient ischemic dilatation of the left ventricle. Computer read rest, and stress left ventricular ejection fraction were 34 %, and a 6 %, respectively. Visually both the stress and rest ejection fractions were normal, and greater than 55%. Conclusion: 1. There is no scintigraphic evidence of Lexiscan induced myocardial ischemia. 2. There is no scintigraphic evidence of myocardial infarction/scar. 3. Check Echocardiogram for LV ejection fraction correlation. Recommendations: Aggressive risk factor modification, and treating the underlying co- morbidities. [facility]
== END 2019-03-19 19:10 | disposition home or self-care (01) | DRG 313 ==
LOC: ER 14:28 → EH 23:31 → INTOOBSV 23:31 → 3N 03-16 13:05 → OBSVTOIN 03-19 12:22
PROVIDERS: ADMIT Internal Medicine; ATTEND Internal Medicine
DX: R07.9 Chest pain, unspecified (principal); R00.1 Bradycardia, unspecified; I25.9 Chronic ischemic heart disease, unspecified; I12.9 Hypertensive chronic kidney disease with stage 1 through stage 4 chronic kidney disease, or unspecified chronic kidney disease; N18.3 Chronic kidney disease, stage 3 (moderate); K21.9 Gastro-esophageal reflux disease without esophagitis
CPT/HCPCS: 36415; 71046; 76775; 78452; 80048; 80053; 81001; 82553; 82607; 82728; 82746; 83540; 83550; 83735; 83880; 83970; 84100; 84439; 84443; 84484; 85025; 85045; 85730; 93005; 93010; 93017; 99285; A9500; G0378; J1644; J2785; J3490; Q9969

== ENCOUNTER → 2019-09-12 | Outpatient (CLI) | payer MEDICARE, OTHER ==
[2019-09-12 10:27] LABS: ANION GAP 8 (5-19); BLOOD UREA NITROGEN 34 mg/dL (7-20); CALCIUM 9.7 mg/dL (8.4-10.2); CARBON DIOXIDE 29 mmol/L (22-30); CHLORIDE 103 mmol/L (98-107); GLUCOSE 90 mg/dL (75-110); POTASSIUM 4.4 mmol/L (3.6-5.0)
== END ==
LOC: OD 09:02
PROVIDERS: ATTEND Internal Medicine Nephrology
DX: I12.9 Hypertensive chronic kidney disease with stage 1 through stage 4 chronic kidney disease, or unspecified chronic kidney disease (principal); N18.3 Chronic kidney disease, stage 3 (moderate)
CPT/HCPCS: 36415; 80048

== ENCOUNTER → 2019-12-05 | Outpatient (CLI) | payer MEDICARE, OTHER ==
[2019-12-05 13:40] LABS: ABSOLUTE EOSINOPHILS # (AUTO) 0.2 10^3/uL (0.0-0.6); ABSOLUTE LYMPHOCYTES (AUTO) 1.3 10^3/uL (0.5-4.7); ABSOLUTE MONOCYTES (AUTO) 0.4 10^3/uL (0.1-1.4); ABSOLUTE NEUT (AUTO) 2.1 10^3/uL (1.7-8.2); BASOPHILS % (AUTO) 0.6 % (0-2); EOSINOPHILS % (AUTO) 3.9 % (0-6); HEMATOCRIT 33.7 % (36.0-47.0); HEMOGLOBIN 11.7 g/dL (12.0-15.5); LYMPHOCYTES % (AUTO) 32.2 % (13-45); MEAN CORPUSCULAR HEMOGLOBIN 32.1 pg (27.0-33.4); MEAN CORPUSCULAR HGB CONC 34.8 g/dL (32.0-36.0); MEAN CORPUSCULAR VOLUME 92 fl (80-97); MONOCYTES % (AUTO) 9.9 % (3-13); PLATELET COUNT 177 10^3/uL (150-450); RED BLOOD COUNT 3.65 10^6/uL (3.72-5.28); SEGMENTED NEUTROPHILS % (AUTO) 53.4 % (42-78); TOTAL CELLS COUNTED % (AUTO) 100 %
[2019-12-05 13:57] LABS: ANION GAP 10 (5-19); BLOOD UREA NITROGEN 24 mg/dL (7-20); CALCIUM 9.2 mg/dL (8.4-10.2); CARBON DIOXIDE 25 mmol/L (22-30); CHLORIDE 102 mmol/L (98-107); GLUCOSE 108 mg/dL (75-110); POTASSIUM 3.8 mmol/L (3.6-5.0)
[2019-12-05 14:16] LABS: APPEARANCE,URINE SLIGHTLY-CLOUDY; BILIRUBIN,URINE NEGATIVE (NEGATIVE); COLOR,URINE YELLOW; GLUCOSE, URINE NEGATIVE (NEGATIVE); KETONES,URINE NEGATIVE (NEGATIVE); LEUKOCYTE ESTERASE,URINE MODERATE (NEGATIVE); NITRITE,URINE NEGATIVE (NEGATIVE); PROTEIN,URINE NEGATIVE (NEGATIVE); URINE SPECIFIC GRAVITY 1.018; UROBILINOGEN,URINE NEGATIVE mg/dL (<2.0)
== END ==
LOC: OD 13:01
PROVIDERS: ATTEND Internal Medicine Nephrology
DX: I12.9 Hypertensive chronic kidney disease with stage 1 through stage 4 chronic kidney disease, or unspecified chronic kidney disease (principal); N18.3 Chronic kidney disease, stage 3 (moderate)
CPT/HCPCS: 36415; 80048; 81001; 85025

== ENCOUNTER → 2020-04-17 | Outpatient (CLI) | payer MEDICARE, OTHER ==
--- NOTE | 2020-04-17 15:29 | RADIOLOGY REPORT (SQ) ---
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 RADIONUCLIDE AND DOSE: 27.8 mCi technetium 99m labeled red blood cells The route of agent administration: Intravenous TECHNIQUE: Following administration of the radionuclide, gated images of the heart are obtained in t hree projections. Left ventricular functional analysis performed. LIMITATIONS: None. FINDINGS: LEFT VENTRICULAR FUNCTION: EJECTION FRACTION: 76%. END-DIASTOLIC VOLUME: 83 mL. END-SYSTOLIC VOLUME: 26 mL. WALL MOTION: No focal wall motion abnormalities. OTHER: No other significant finding. IMPRESSION: Normal. TECHNICAL DOCUMENTATION: JOB ID: [id number] 2010 [employer]- All Rights Reserved Reading location - IP/workstation name: [email or web address]
== END ==
LOC: RAD 12:39
PROVIDERS: ATTEND Internal Medicine
DX: Z51.11 Encounter for antineoplastic chemotherapy (principal); C50.412 Malignant neoplasm of upper-outer quadrant of left female breast; Z79.899 Other long term (current) drug therapy
CPT/HCPCS: 78472; A9560; Q9969

== ENCOUNTER → 2020-08-04 | Outpatient (CLI) | payer MEDICARE, OTHER ==
--- NOTE | 2020-08-04 13:26 | RADIOLOGY REPORT (SQ) ---
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 Left ventricular functional analysis performed. LIMITATIONS: None. FINDINGS: LEFT VENTRICULAR FUNCTION: EJECTION FRACTION: 67%. END-DIASTOLIC VOLUME: 77 mL. END-SYSTOLIC VOLUME: 27 mL. WALL MOTION: No focal wall motion abnormalities. OTHER: No other significant finding. IMPRESSION: NORMAL CARDIAC MUGA STUDY. NORMAL LEFT VENTRICULAR FUNCTION WITH VALUES ABOVE. TECHNICAL DOCUMENTATION: JOB ID: [id number] 2010 [employer]- All Rights Reserved Reading location - IP/workstation name: [email or web address]
== END ==
LOC: RAD 10:43
PROVIDERS: ATTEND Physician Assistant Medical
DX: C50.412 Malignant neoplasm of upper-outer quadrant of left female breast (principal); Z08 Encounter for follow-up examination after completed treatment for malignant neoplasm
CPT/HCPCS: 78472; A9560; Q9969

== ENCOUNTER → 2020-08-28 | Outpatient (CLI) | payer MEDICARE, OTHER ==
--- NOTE | 2020-08-28 14:43 | RADIOLOGY REPORT (SQ) ---
EXAM DESCRIPTION: VENOUS BILATERAL LOWER IMAGES COMPLETED DATE/TIME: 08/28/2020 2:09 pm REASON FOR STUDY: PAIN M79.604 PAIN IN RIGHT LEG M79.605 PAIN IN LEFT LEG COMPARISON: None. TECHNIQUE: Dynamic and static yoon scale and color images acquired of both lower extremity venous sy stems. Selected spectral images acquired with additional compression and augmentation maneuvers. Imag es stored on PACS. LIMITATIONS: None. FINDINGS: RIGHT LEG COMMON FEMORAL AND FEMORAL: Normal phasicity, compression and augmentation. No visualized echogenic m aterial on yoon scale. No defects on color images. POPLITEAL: Normal compression and augmentation. No visualized echogenic material on yoon scale. No de fects on color images. CALF VESSELS: Normal compression and augmentation. No visualized echogenic material on yoon scale. No defects on color image. GSV AND SSV: Normal compression. No visualized echogenic material on yoon scale. No defects on color images. ANY DEEP VENOUS INSUFFICIENCY: Not evaluated. ANY EVIDENCE OF POPLITEAL CYST: No. OTHER: No other significant finding. LEFT LEG COMMON FEMORAL AND FEMORAL: Normal phasicity, compression and augmentation. No visualized echogenic m aterial on yoon scale. No defects on color images. POPLITEAL: Normal compression and augmentation. No visualized echogenic material on yoon scale. No de fects on color images. CALF VESSELS: Normal compression and augmentation. No visualized echogenic material on yoon scale. No defects on color images. GSV AND SSV: Normal compression. No visualized echogenic material on yoon scale. No defects on color images. ANY DEEP VENOUS INSUFFICIENCY: Not evaluated. ANY EVIDENCE POPLITEAL CYST: No. OTHER: No other significant finding. IMPRESSION: 1. NO EVIDENCE DVT OR SVT IN EITHER LEG. COMMENT: 1. The results of this examination were given to Amalia on 08/28/2020 at 14:05 hours. TECHNICAL DOCUMENTATION: JOB ID: [id number] 2010 [employer]- All Rights Reserved Reading location - IP/workstation name: [email or web address]
== END ==
LOC: SP 12:26
PROVIDERS: ATTEND Physician Assistant Medical
DX: M79.604 Pain in right leg (principal); M79.605 Pain in left leg
CPT/HCPCS: 93970

== ENCOUNTER → 2020-09-05 | Outpatient (CLI) | payer MEDICARE, OTHER ==
[2020-09-05 12:48] LABS: HEMOGLOBIN 8.2 g/dL (12.0-15.5); MEAN CORPUSCULAR HEMOGLOBIN 35.6 pg (27.0-33.4); MEAN CORPUSCULAR HGB CONC 32.8 g/dL (32.0-36.0); MEAN CORPUSCULAR VOLUME 109 fl (80-97); PLATELET COUNT 146 10^3/uL (150-450); RED CELL DISTRIBUTION WIDTH 17.6 % (11.5-14.0); WHITE BLOOD COUNT 3.6 10^3/uL (4.0-10.5)
[2020-09-05 13:09] LABS: APPEARANCE,URINE CLEAR; BILIRUBIN,URINE NEGATIVE (NEGATIVE); COLOR,URINE YELLOW; GLUCOSE, URINE NEGATIVE (NEGATIVE); KETONES,URINE NEGATIVE (NEGATIVE); PROTEIN,URINE NEGATIVE (NEGATIVE); UROBILINOGEN,URINE NEGATIVE mg/dL (<2.0)
[2020-09-05 13:15] LABS: ALBUMIN 3.1 g/dL (3.5-5.0); BLOOD UREA NITROGEN 21 mg/dL (7-20); CALCIUM 8.5 mg/dL (8.4-10.2); GLUCOSE 95 mg/dL (75-110); PHOSPHORUS 3.3 mg/dL (2.5-4.5); POTASSIUM 4.3 mmol/L (3.6-5.0)
[2020-09-05 13:20] LABS: ANION GAP 5 (5-19); CARBON DIOXIDE 26 mmol/L (22-30); CHLORIDE 107 mmol/L (98-107)
== END ==
LOC: OD 12:07
PROVIDERS: ATTEND Internal Medicine Nephrology
DX: N18.30 Chronic kidney disease, stage 3 unspecified (principal)
CPT/HCPCS: 36415; 80069; 81001; 85027